=== PATIENT | female | born 1965 | race Caucasian/White ===

== ENCOUNTER 2017-11-29 08:12 | Day surgery (SDC) | payer OTHER ==
[~2017-11-29 08:12] MED LIST: BACITRACIN 50000 UNIT VIAL ONE; CEFAZOLIN SODIUM 1 GM/VIAL ONE; GENTAMICIN SULF 80 MG/2ML INJ ONE; Mastisol Adhesive Liq ONE; NS 0.9% VIAL 20 ML ONE; Ringers Lactate 1,000 ML IV ONE
[2017-11-29] MEDS ORDERED: SCOPOLAMINE HYDROBROMIDE PATCH TD ONE (08:24)
[2017-11-29] MEDS ORDERED: CEFAZOLIN/SWI 1gm 1 GM/10 ML SYR ONE (08:24)
[2017-11-29] MEDS ORDERED: Ringers Lactate 1,000 ML IV ONE ×2 (08:24→14:37)
[2017-11-29 08:30] LABS: Specific Gravity 1.015 (1.005-1.030)
[2017-11-29] MEDS ORDERED: LIDOCAINE 2% MPF 5 ML VIAL ONE (08:59)
[2017-11-29] MEDS ORDERED: MIDAZOLAM HCL 2 MG/2 ML INJ ONE (08:59)
[2017-11-29] MEDS ORDERED: PROPOFOL 200 MG/20 ML VIAL IV ONE (08:59)
[2017-11-29] MEDS ORDERED: ROCURONIUM 50 MG/5 ML VIAL IV ONE (09:00)
[2017-11-29] MEDS ORDERED: FENTANYL CITR 100 MCG/2 ML ONE ×3 (09:00→11:40)
[2017-11-29] MEDS ORDERED: ONDANSETRON HCL 40 MG/20 ML VIAL ONE (09:01)
--- NOTE | 2017-11-29 09:49 | RAD REPORT ---
EXAM DESCRIPTION: RAD - Chest Pa And Lat (2 Views) - 11/29/2017 8:13 am CLINICAL HISTORY: Preop chest, pending breast surgery, history of hypotension COMPARISON: None. TECHNIQUE: PA and lateral views of the chest were obtained. FINDINGS: The lungs are clear. Incidental granuloma noted in the lateral lower left lung field. Hea rt size is normal and central vasculature is within normal limits. No pleural effusion or pneumothor ax seen. No acute bony finding noted. No aortic abnormality. IMPRESSION: No acute cardiopulmonary process.
[2017-11-29] MEDS ORDERED: EPHEDRINE SULF 50 MG/ML SYR ONE (10:47)
[2017-11-29] MEDS ORDERED: GLYCOPYRROLATE 0.2 MG/ML SYR ONE (11:20)
[2017-11-29] MEDS ORDERED: KETOROLAC 30 MG/ML INJ ONE (14:43)
[2017-11-29] MEDS: MORPHINE 4 MG/ML SYR ONE ×6 (14:49→15:36)
[2017-11-29] MEDS: MEPERIDINE HCL 50 MG/ML AMP ONE ×2 (15:41→15:47)
--- NOTE | 2017-11-30 07:23 | EKG ---
Test Date: 2017-11-29 Test Time: 07:55:58 Product Marketing Specialist: KENTON MEASUREMENT RESULTS: Intervals: Rate: 53 NJ: 172 QRSD: 80 QT: 430 QTc: 403 Stanton: P: 37 NJ: 172 QRS: 60 T: 36 INTERPRETIVE STATEMENTS: Sinus bradycardia Otherwise normal ECG No previous ECG available for comparison Electronically Signed On 11-30-17 07:20:00 CDT by Crow Huang
--- NOTE | 2017-12-03 10:02 | OP ---
Surgeon: Chris Calvillo MD Director Emergency: Nathan. Preoperative Diagnosis: Bilateral breast enlargement and descent. Postoperative Diagnosis: Bilateral breast enlargement and descent. Procedure Performed: Bilateral breast lifts and reduction. Anesthesia: General. Description Of Procedure: After satisfactory induction of general anesthesia, chest was prepped with DuraPrep and dry sterile drapes were applied in the usual manner. A 45-template was used to outline the right areola. Then, a transverse and curvilinear inferior incisions were made. The intervening skin was de-epithelized with EpiCut or dermabrader. Flap was elevated proximal 4-5 cm up towards the clavicle, the sternum, and anterior axillary line. Then, the patient underwent retropectoral dissection with electrocautery on the pectoralis major. Then, the inferior incision was made and the deep subcutaneus tissue was then rotated to cone. Prior to conization, breast tissue was removed with electrocautery and scalpel. The cone was formed with 2 -0 PDS suture and the wound was carefully stapled shut. Left side was done in identical manner. We then returned to the right side. The straps were elevated at 12 o'clock, 1:30, and 3 o'clock positions. Straps were then woven in and out of pectoralis major muscle, back to the base of the cone and then tied with 2-0 PDS sutures. The 3 o'clock strap was sewn over the sternum at the 3 o'clock position with 2-0 Ethibond. The wound was carefully stapled shut. The left side was done in an identical manner, mirror image. Attention was turned to the right side. Excess skin was excised, dog ears resected and then a MARCOS drain was brought out the axilla and sewn in place with 2-0 silk. Wound was closed with 3-0 Vicryl on subcu 3-0 PDS running subcuticular tied in the vertical meridian breast. Left side was done in an identical manner. The patient was sat up. Site for new nipple-areolar complex was marked out. A 45- mm template was used. Tissue was excised. Nipple was delivered and then sewn with interrupted 4-0 PDS followed by 4-0 PDS running subcuticular. Tincture of benzoin, Steri-Strips, 5x5s, fluffs, and Duke wrap. The patient tolerated the procedure well and returned to recovery. The amount removed from right side was 354, left 370. YONIS/VONNIE Voice ID: [id number] Report ID: [id number]
== END 2017-11-29 17:10 | disposition home or self-care (01) ==
LOC: OR 08:12
PROVIDERS: ATTEND Specialist
PROC: 0H0V0ZZ Alteration of Bilateral Breast, Open Approach (ICD-10-PCS; 2017-11-29)
PROC: 0H0V0ZZ Alteration of Bilateral Breast, Open Approach (ICD-10-PCS; principal; 2017-11-29 09:00)
DX: N62 Hypertrophy of breast (principal); N64.81 Ptosis of breast; Z91.040 Latex allergy status; Z88.8 Allergy status to other drugs, medicaments and biological substances
CPT/HCPCS: 71046; 81025; 88305; 93005; J0690; J1580; J2175; J2250; J2405; J3010